=== PATIENT | female | born 1950 | race Asian ===

== ENCOUNTER 2018-12-03 07:08 | Day surgery (SDC) | payer MEDICARE, OTHER ==
[~2018-12-03] VITALS: Ht 154.9 cm; Wt 56.4 kg
[~2018-12-03 07:08] MED LIST: ATOR10TA84 PO; CeFAZolin 2 GM/DEXTROSE 50 ML IV ONE; METF-960 PO; MetroNIDAZOLE 500 MG/NACL 100 ML IV ONE; RINGERS SOLUTION,LACTATED 1,000 ML IV ONE; SITA100 PO; [UNRECOGNIZED DRUG - CODE] PO
[2018-12-03 07:52] LABS: BASOPHILS % (AUTO) 0.8 % (0.0-2.0); EOSINOPHILS % (AUTO) 2.7 % (1.0-6.0); HEMATOCRIT 42.7 % (36-46); HEMOGLOBIN 13.9 g/dL (12.0-16.0); LYMPHOCYTES # (AUTO) 1.6 K/uL (1.0-4.8); LYMPHOCYTES % (AUTO) 16.2 % (22.0-44.0); MEAN CORPUSCULAR HEMOGLOBIN 26.5 pg (26.0-34.0); MEAN CORPUSCULAR HGB CONC 32.5 G/dL (31.0-37.0); MEAN CORPUSCULAR VOLUME 82 fL (80-100); MONOCYTES # (AUTO) 0.7 K/uL (0.1-1.0); MONOCYTES % (AUTO) 7.3 % (2.0-9.0); PLATELET COUNT (AUTO) 438 K/uL (150-450); RED BLOOD CELL COUNT(AUTO) 5.23 MIL/uL (4.00-5.20); RED CELL DISTRIBUTION WIDTH 13.4 % (11.5-14.5)
[2018-12-03 08:05] LABS: CALCIUM, TOTAL 9.4 mg/dL (8.8-10.5); CREATININE 1.04 mg/dL (0.60-1.30); POTASSIUM 3.9 mmol/L (3.5-5.1)
[2018-12-03] MEDS ORDERED: LIDOCAINE 2%/EPI 1:200,000/PF 20 ML VIAL ONE (08:07)
[2018-12-03] MEDS ORDERED: BUPIVACAINE HCL/PF 0.5% 30 ML VIAL ONE (08:07)
[2018-12-03] MEDS ORDERED: SODIUM CHLORIDE 0.9% IRRIG BAG 0 ML IRRIG ONE (08:09)
[2018-12-03] MEDS ORDERED: SODIUM CHLORIDE 0.9% 0 ML IV ONE (08:09)
[2018-12-03 08:10] LABS: ALBUMIN 3.7 g/dL (3.4-5.0); BILIRUBIN,TOTAL 0.5 mg/dL (0.1-1.0); TOTAL PROTEIN, SERUM 7.8 g/dL (6.4-8.2)
[2018-12-03] MEDS ORDERED: IOHEXOL 240 MG/ML 20 ML VIAL ONE (08:11)
[2018-12-03] MEDS ORDERED: GUM MASTIC/STORAX/MSAL/ALCOHOL LIQUID 0.67 ML VIAL TP ONE (08:12)
[2018-12-03] MEDS ORDERED: MetroNIDAZOLE 500 MG/NACL 100 ML IV ONE (09:00)
[2018-12-03] MEDS ORDERED: CeFAZolin 2 GM/DEXTROSE 50 ML IV ONE (09:00)
[2018-12-03] MEDS ORDERED: FentaNYL CITRATE-PF 100 MCG/2 ML VIAL IVP PRN (09:45)
[2018-12-03] MEDS ORDERED: MEPERIDINE-PF 25 MG/ML VIAL IVP PRN (09:45)
[2018-12-03] MEDS ORDERED: HYDROmorphone 2 MG/ML SYRINGE IVP PRN (09:45)
[2018-12-03] MEDS ORDERED: BUPIVACAINE HCL/PF 0.5% 30 ML VIAL INJ ONE (10:01)
[2018-12-03] MEDS ORDERED: LIDOCAINE 2%/EPI 1:200,000/PF 20 ML VIAL INJ ONE (10:02)
[2018-12-03] MEDS ORDERED: ACETAMINOPHEN 500 MG TABLET PO PRN (10:15)
[2018-12-03] MEDS ORDERED: IBUPROFEN 600 MG TABLET PO PRN (10:15)
[2018-12-03] MEDS ORDERED: RINGERS SOLUTION,LACTATED 1,000 ML IV ONE (10:55)
[2018-12-03] MEDS ORDERED: NEOSTIGMINE METHYLSULFATE 1 MG/ML 10 ML VIAL IVP ONE (12:00)
[2018-12-03] MEDS ORDERED: ONDANSETRON HCL 4 MG/2 ML VIAL IVP ONE (12:00)
[2018-12-03] MEDS ORDERED: METOCLOPRAMIDE HCL 5 MG/ML 2 ML VIAL IVP ONE (12:00)
[2018-12-03] MEDS ORDERED: PROPOFOL 1% 20 ML VIAL IVP ONE (12:00)
[2018-12-03] MEDS ORDERED: LIDOCAINE/PF 2% 5 ML SYRINGE IVP ONE (12:00)
[2018-12-03] MEDS ORDERED: FentaNYL CITRATE-PF 100 MCG/2 ML VIAL IVP ONE (12:00)
[2018-12-03] MEDS ORDERED: MIDAZOLAM HCL 2 MG/2 ML VIAL IVP ONE (12:00)
[2018-12-03] MEDS ORDERED: OXYGEN THERAPY IH SCH (20:00)
== END 2018-12-03 12:15 | disposition home or self-care (01) ==
LOC: SURGERY 07:08
PROVIDERS: ATTEND Surgery
DX: K80.10 Calculus of gallbladder with chronic cholecystitis without obstruction (principal); K82.1 Hydrops of gallbladder; E03.9 Hypothyroidism, unspecified; I10 Essential (primary) hypertension; E11.3599 Type 2 diabetes mellitus with proliferative diabetic retinopathy without macular edema, unspecified eye; E78.00 Pure hypercholesterolemia, unspecified; Z79.84 Long term (current) use of oral hypoglycemic drugs; Z87.19 Personal history of other diseases of the digestive system; Z90.49 Acquired absence of other specified parts of digestive tract; Z79.899 Other long term (current) drug therapy; Z98.890 Other specified postprocedural states; Z83.3 Family history of diabetes mellitus; Z80.9 Family history of malignant neoplasm, unspecified
CPT/HCPCS: 36415; 47562; 80053; 85025; 88304; 93005; J0690 ×2; J2250; J2405; J2704; J2765; J3010; J3490 ×3; J7120; J7030; Q9966